=== PATIENT | male | born 1990 | race Caucasian/White ===

== ENCOUNTER 2016-04-07 22:11 | Emergency (ER) | payer MEDICAID | END 2016-04-07 23:40 | disposition left against medical advice (07) | LOC: D.ER 22:11 | DX: K08.89 Other specified disorders of teeth and supporting structures (principal) ==

== ENCOUNTER 2016-09-19 03:16 | Emergency (ER) | payer MEDICAID | END 2016-09-19 03:47 | disposition home or self-care (01) | LOC: D.ER 03:16 | DX: K08.89 Other specified disorders of teeth and supporting structures (principal); S02.5XXA Fracture of tooth (traumatic), initial encounter for closed fracture; X58.XXXA Exposure to other specified factors, initial encounter; Y93.89 Activity, other specified; Y92.89 Other specified places as the place of occurrence of the external cause; K04.7 Periapical abscess without sinus; B20 Human immunodeficiency virus [HIV] disease; F17.200 Nicotine dependence, unspecified, uncomplicated ==

== ENCOUNTER 2016-12-26 03:53 | Emergency (ER) | payer MEDICAID | END 2016-12-26 04:48 | disposition home or self-care (01) | LOC: D.ER 03:53 | DX: L25.9 Unspecified contact dermatitis, unspecified cause (principal) ==

== ENCOUNTER → 2018-02-12 09:30 | Outpatient (CLI) | payer MEDICAID ==
[2018-02-12 10:15] LABS: BASOPHILS 0.3 % (0-2); EOSINOPHILS 1.9 % (0-7); HEMATOCRIT 45.6 % (42.0-54.0); IMMATURE GRANULOCYTES 0.4 % (0-5); LYMPHOCYTES 28.1 % (15-50); MCH 31.6 pg (26.0-34.0); MCHC 35.1 g/dL (31.0-37.0); MCV 89.9 fL (80.0-100.0); MEAN PLATELET VOLUME 9.9 fL (7.4-10.4); MONOCYTES 9.3 % (2-11); PLATELET COUNT 241 10x3/uL (130-400); RBC 5.07 10x6/uL (4.20-6.10); RDW 12.7 % (11.5-14.5); WBC 7.2 10x3/uL (4.8-10.8)
[2018-02-12 10:23] LABS: ALBUMIN 3.8 g/dL (3.4-5.0); ALKALINE PHOSPHATASE 64 U/L (46-116); ALT (SGPT) 34 U/L (10-68); BILIRUBIN - TOTAL 0.51 mg/dL (0.2-1.3); CALC OSMOLALITY 275 mosm/kg (275-300); CALCIUM 9.1 mg/dL (8.5-10.1); CARBON DIOXIDE 29.5 mmol/L (21.0-32.0); CHLORIDE - SERUM 103 mmol/L (98-107); CREATININE - SERUM 1.1 mg/dL (0.6-1.3); GLUCOSE 101 mg/dL (74-106); POTASSIUM - SERUM 3.8 mmol/L (3.5-5.1); PROTEIN - SERUM 7.8 g/dL (6.4-8.2); SODIUM 139 mmol/L (136-145); UREA NITROGEN 7 mg/dL (7-18); eGFR NON AFRICAN AMERICAN 84 mL/min (90-120)
[2018-02-12 10:30] LABS: APPEARANCE CLEAR (CLEAR); BILIRUBIN NEGATIVE (NEGATIVE); COLOR YELLOW (YELLOW); GLUCOSE NEGATIVE (NEGATIVE); KETONE NEGATIVE (NEGATIVE); NITRITE NEGATIVE (NEGATIVE); PROTEIN NEGATIVE (NEGATIVE); UROBILINOGEN NORMAL (NORMAL)
[2018-02-13 15:24] LABS: BASOS 0 % (Not Estab.); CD4 - % CD4 POS. LYMPH 20.9 % (30.8-58.5); CD4 - ABSOLUTE CD4 HELPER 439 /uL (359-1519); EOS 3 % (Not Estab.); EOS (ABSOLUTE) 0.2 x10E3/uL (0.0-0.4); HEMATOCRIT 45.8 % (37.5-51.0); HEMOGLOBIN 16.1 g/dL (13.0-17.7); LYMPHS 30 % (Not Estab.); LYMPHS (ABSOLUTE) 2.1 x10E3/uL (0.7-3.1); MCHC 35.2 g/dL (31.5-35.7); MCV 88 fL (79-97); MONOCYTES 7 % (Not Estab.); MONOCYTES (ABSOLUTE) 0.5 x10E3/uL (0.1-0.9); NEUTROPHILS 60 % (Not Estab.); NEUTROPHILS (ABSOLUTE) 4.2 x10E3/uL (1.4-7.0); PLATELETS 248 x10E3/uL (150-379); RDW 13.3 % (12.3-15.4)
[2018-02-15 14:13] LABS: HIV-1 RNA BY PCR 40 (()); LOG10 HIV-1 RNA 1.602 (())
== END | disposition home or self-care (01) ==
LOC: D.LABREF 09:30
PROVIDERS: Student in an Organized Health Care Education/Training Program
DX: B20 Human immunodeficiency virus [HIV] disease (principal)

== ENCOUNTER 2020-06-24 10:15 | Emergency (ER) | payer MEDICAID ==
[~2020-06-24] VITALS: Ht 182.9 cm; Wt 106.8 kg
[2020-06-24 10:24] VITALS: Ht 182.9 cm; Wt 106.8 kg
[2020-06-24] MEDS ORDERED: AMOXICILLIN875 MG PO (10:45)
[2020-06-24] MEDS ORDERED: HYDROCODON-ACE1 EAC7 PO (10:46)
== END 2020-06-24 11:03 | disposition home or self-care (01) ==
LOC: D.ER 10:15
DX: K02.9 Dental caries, unspecified (principal); K04.7 Periapical abscess without sinus; K08.89 Other specified disorders of teeth and supporting structures